=== PATIENT | female | born 1965 | race American Indian/Alaskan Native ===

== ENCOUNTER 2020-04-28 14:45 | Outpatient (CLI) | payer OTHER ==
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
== END 2020-04-28 14:46 | disposition home or self-care (01) ==
LOC: XRAY 14:45
PROVIDERS: ATTEND Internal Medicine
DX: M47.817 Spondylosis without myelopathy or radiculopathy, lumbosacral region (principal); M54.42 Lumbago with sciatica, left side
CPT/HCPCS: 72100

== ENCOUNTER 2020-07-20 13:28 | Emergency (ER) | payer OTHER ==
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
[2020-07-20 17:37] VITALS: BP 126/84
== END 2020-07-20 17:36 | disposition home or self-care (01) ==
LOC: ED 13:28
DX: S13.8XXA Sprain of joints and ligaments of other parts of neck, initial encounter (principal); S13.4XXA Sprain of ligaments of cervical spine, initial encounter; Z79.899 Other long term (current) drug therapy; V89.2XXA Person injured in unspecified motor-vehicle accident, traffic, initial encounter; Y93.89 Activity, other specified; Y92.488 Other paved roadways as the place of occurrence of the external cause; Y99.8 Other external cause status
CPT/HCPCS: 99282